=== PATIENT | male | born 1960 | race Caucasian/White ===

== ENCOUNTER 2022-09-19 08:52 | Outpatient (REF) | payer BC, SELFPAY ==
[2022-09-19 15:14] LABS: ALT 24 U/L (16-63); AST 24 U/L (15-37); Albumin 4.1 g/dL (3.4-5.0); Alkaline Phosphatase 96 U/L (46-116); Anion Gap 6.8 mmol/L (3-11); BUN 11 mg/dL (7-18); Bilirubin, Total 0.6 mg/dL (0.2-1.0); CO2 29.2 mmol/L (21.0-32.0); CREATININE 0.8 mg/dL (0.70-1.30); Calcium 9.2 mg/dL (8.5-10.1); Calculated LDL 123 mg/dL (<100); Chloride 105 mmol/L (98-107); Cholesterol 205 mg/dL (<200); Estimated GFR 100.06 (mL/min/1.73m2); Glucose 114 mg/dL (74-106); HDL Cholesterol 41 mg/dL (40-60); Potassium 4.4 mmol/L (3.5-5.1); Sodium 141 mmol/L (136-145); TSH (W/Ref FT4) 2.57 uIU/mL (0.36-3.74); Total Protein 6.9 g/dL (6.4-8.2); Triglyceride 205 mg/dL (<150)
[2022-09-19 15:34] LABS: Hemoglobin A1C 5.5 % (<5.7)
[2022-09-20 14:07] LABS: HIV-1/2 Ag & Ab Screen Negative (Negative)
[2022-09-23 15:52] LABS: Hepatitis C Ab w Rflx HCV PCR Negative (Negative)
== END 2022-09-19 08:53 | disposition home or self-care (01) ==
LOC: NCHCN 08:52
PROVIDERS: PCP Nurse Practitioner Family; Visit Provider Nurse Practitioner Family
DX: E78.5 Hyperlipidemia, unspecified (principal); E66.9 Obesity, unspecified; R53.83 Other fatigue; Z13.1 Encounter for screening for diabetes mellitus; Z11.4 Encounter for screening for human immunodeficiency virus [HIV]; Z11.59 Encounter for screening for other viral diseases; Z00.00 Encounter for general adult medical examination without abnormal findings
CPT/HCPCS: 80053; 80061; 86803; 87389; 83036; 84443

== ENCOUNTER 2023-03-31 07:34 | Day surgery (SDC) | payer BC, SELFPAY ==
--- NOTE | 2023-03-30 19:55 | W.PM.DSUDISC ---
Date of service: 03/31/23 Time of Service: 09:30 Discharge Plan Disposition Patient Disposition: Home Condition: Good Discharge Details Reason For Visit: Screening colonoscopy Attending Provider: Tucker Zimmerman Primary Care Provider: Xiomara Felipe Home Meds and New Rx's Prescriptions: Continued duloxetine 60 mg capsule,delayed release(DR/EC) 60 mg PO DAILY rosuvastatin 10 mg tablet 10 mg PO DAILY fluticasone propionate [Flonase Allergy Relief] 50 mcg/actuation spray,suspension 1 spray intranasal DAILY Rx Instructions: administer into each nostril loratadine [Claritin] 10 mg tablet 10 mg PO DAILY ibuprofen 200 mg tablet 400 mg PO Q6H PRN Discontinued polyethylene glycol 3350 17 gram/dose powder 238 g PO ONCE Qty: 238 0RF Rx Instructions: take per colonoscopy instructions bisacodyl [Dulcolax (bisacodyl)] 5 mg tablet,delayed release (DR/EC) 5 mg PO ONCE Qty: 4 0RF Rx Instructions: take per colonoscopy instructions Discharge Instructions Instructions: Diverticulosis (GEN), Diverticulosis Diet (GEN) Additional Instructions: Britton, we were able to complete your colonoscopy today without any difficulty. You have a modest amount of sigmoid diverticulosis. These are small weak spots in the colon wall. I have attached some information here regarding general management of diverticular disease. Otherwise, I did not see any signs of polyps or tumors. 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 This is important, because it informs us regarding the interval for your screening colonoscopies. Most people recommend follow-ups at 5 to 7 years with a previous tubulovillous adenoma. You have now had 2 negative colonoscopies. In that regards, I think it would be reasonable to consider another colonoscopy in 7 to 10 years. 1. If tolerated, consume a soft, low fiber diet for 1-2 days. 2. Do not drive, drink alcohol, operate machinery, make critical decisions, or do activities that require coordination or balance for 24 hours. 3. Because air was put into your colon during the procedure, expelling air from your rectum (passing gas or farting) is normal. 4. You may not have a bowel movement for 1-3 days because of the colonoscopy prep. This is normal. 5. Go directly to the emergency room if you notice any of the following: Develop chills (warm to touch), or if you have a thermometer and your temperature is above 101 Difficulty breathing or difficultly swallowing Persistent vomiting Severe abdominal pain, other than gas cramps Severe chest pain Black, tarry stools Any bleeding ? exceeding one tablespoon 6. Call your physician if the site where your intravenous was started becomes red, swollen, painful, and warm to touch. 7. Your physician has reviewed your pre-procedure medications. Please continue to take those medications as previously ordered. You will be given specific information/education regarding any changes to your medications before leaving. Activity:: Activity as Tolerated Diet:: As Tolerated Discharge Orders Discharge Orders: Discharge Order (Routine); Ordered 03/30/23 Ordered By: Tucker Zimmerman DS: Diagnosis Discharge Diagnosis (1) Screen for colon cancer: Status: Acute Asessment and Plan: Negative screening colonoscopy
--- NOTE | 2023-03-30 19:56 | W.COLOREPORT ---
Date of service: 03/31/23 Time of Service: 09:32 Colonoscopy Report Date of procedure: 03/31/23 Pre-op diagnosis general: Screening colonoscopy Post-op diagnosis procedure note: other (Diverticulosis) Procedure: Colonoscopy Surgeon: Tucker Zimmerman Anesthesia Type: General:No Airway Estimated blood loss (mL): 0 Pathology: none sent Complications: None Disposition: same day Indications: Britton is 62 years old. He has had adenomatous polyps removed during previous colonoscopy. He needs another colonoscopy Prep: Miralax/Dulcolax Procedure Start Time: 08:57 Procedure End Time: 09:17 Retraction Time: 14 Findings: Sigmoid diverticulosis Procedure Description: After the induction of monitored anesthetic care, and with the patient in left lateral decubitus position, I began by performing an external anorectal exam.? Perineum and skin were normal, as was the anal verge.? There was no evidence of external hemorrhoids.? Next, I performed a digital rectal exam.? I did not appreciate any abnormal findings.? Next, I advanced a colonoscope into the rectal vault.? I performed retroflexion.? This looked normal to me.? Using insufflation, I then advanced the colonoscope beyond the rectal folds and into the sigmoid colon before advancing towards the cecum.? The quality of the prep was adequate.? There was moderate sigmoid diverticulosis. The scope was noted to be in the cecum by identification of the ileocecal valve and appendiceal orifice.? I then began withdrawing the colonoscope using repeated irrigation as necessary for full evaluation of the colonic mucosa. ?Once the scope was withdrawn to the level of the rectum, great care was taken to examine portions of the rectal folds.? Finally, the scope was withdrawn and the patient was brought to the same-day surgery recovery unit as the anesthetic wore off. ?The findings and instructions were shared with the patient prior to discharge.
[2023-03-31 08:03] VITALS: BP 141/91; PULSE 66; RESP 16; TEMP 36.3; O2SAT 96
[2023-03-31] MEDS: Lactated Ringers 1,000 ML 80 ML IV (08:31)
--- NOTE | 2023-03-31 08:40 | W.ANESPRE ---
General Info Date of Service Date Performed: 03/31/23 Height: 6 ft 1 in Weight: 112.8 kg Body Mass Index (BMI): 32.8 Surgical Procedure: Operation Date: 03/31/23 09:05 Proposed Procedure Side Surgeon kendal Zimmerman MD Meds Allergies and Home Medications Allergies Allergy/AdvReac Type Severity Reaction Status Date / Time No Known Drug Allergies Allergy Unknown Verified 03/31/23 07:58 Home Medication Medication Instructions Recorded duloxetine 60 mg capsule,delayed 60 mg PO DAILY 03/17/23 release fluticasone propionate 50 1 spray intranasal DAILY 03/17/23 mcg/actuation nasal spray,suspension (Flonase Allergy Relief) ibuprofen 200 mg tablet 400 mg PO Q6H PRN 03/17/23 loratadine 10 mg tablet (Claritin) 10 mg PO DAILY 03/17/23 rosuvastatin 10 mg tablet 10 mg PO DAILY 03/17/23 Current Visit Medications: Current Medications Generic Name Dose Route Start Last Admin Trade Name Freq PRN Reason Stop Dose Admin Hyoscyamine Sulfate 0.125 mg 03/30/23 19:58 Hyoscyamine 0.125 Mg Sl/Oral/Chew SL 04/29/23 19:57 DIRECTED PRN Ringer's Solution 1,000 mls @ 80 mls/hr 03/31/23 06:00 03/31/23 08:31 IV 04/27/23 23:59 80 mls/hr INFUSION ANKUR Administration IV Miscellaneous Supplies 1 each 03/31/23 06:00 Iv Access IV 04/27/23 23:59 DIRECTED ANKUR Ondansetron HCl 4 mg 03/30/23 19:58 Ondansetron 4 Mg/2 Ml Vial IVP 04/29/23 19:57 Q4H PRN PRN Nausea / Vomiting Sodium Chloride 0 ml 03/31/23 06:00 Normal Saline Flush 10 Ml Syr IV 04/27/23 23:59 PRN PRN Sodium Chloride 0 ml 03/31/23 06:00 Normal Saline 10 Ml Vial IJ 04/27/23 23:59 DIRECTED PRN Sterile Water 0 ml 03/31/23 06:00 Water,Injection,Sterile 10 Ml Vial IJ 04/27/23 23:59 DIRECTED PRN PFSH Active Problems Active Problems: Problem Status Onset Code Degenerative disc disease, lumbar M51.36 Spinal stenosis M48.00 Obesity E66.9 Anxiety disorder F41.9 Former smoker Z87.891 Screen for colon cancer Z12.11 Medical History Medical History Allergic rhinitis History of colon polyps villous adenoma Hyperlipidemia Impaired fasting glucose Major depression, recurrent FABY (obstructive sleep apnea) Peripheral vascular disease Vitamin B deficiency Vitamin D deficiency Surgical History Surgical History (Updated 03/31/23 @ 08:01 by Tamra Haque) History of knee replacement right Hx of colonoscopy Tobacco Smoking/Tobacco Use Status: Former Tobacco Use Alcohol Alcohol Intake: never Substance Use Substance use: Never Substance use type: does not use Vital Signs and Lab Results Vital Signs Most Recent Vital Signs in EMR: Most Recent Vital Signs Temp Pulse Resp BP Pulse Ox 36.3 C L 66 16 141/91 H 96 03/31/23 08:03 03/31/23 08:03 03/31/23 08:03 03/31/23 08:03 03/31/23 08:03 Lab Results Blood Type / Crossmatch: No Data to Display Complete Blood Count: No Data to Display Complete Metabolic Panel: No Data to Display Liver Function Panel: No Data to Display Coagulation Panel: No Data to Display Cardiac Panel: No Data to Display Arterial Blood Gas: No Data to Display Venous Blood Gas: No Data to Display Pancreas Panel: No Data to Display Thyroid Panel: No Data to Display Infectious Disease: No Data to Display Blood Cultures: No Data to Display Toxicology Panel: No Data to Display Anesthesia Assessment and Plan Anesthesia History Personal History: No History of Anesthesia Complications Family History: No Family History of Anesthesia Complications Exercise Tolerance Exercise Tolerance: Metabolic Equivalents>4 Pertinent Negatives Pertinent Negatives: No Symptoms of GERD, No Major Cardiovascular Symptoms or Complaints, No Major Pulmonary Symptoms or Complaints and No History of CVA/TIA Cardiac & Pulmonary Exam Cardiac Exam: Normal S1/S2 Heart Sounds Pulmonary Exam: Clear Bilateral Breath Sounds Implantable Cardiac Device Does patient have a Pacemaker or an ICD?: No Airway Exam Known Difficult Airway: No Mallampati Class: 2 Mouth Opening: Normal (> 3cm) Thyromental Distance: Greater than 3 cm Neck Range of Motion: Full ROM Neck Circumference: Normal Teeth Condition: Normal Dentition ASA Classification ASA Score: ASA 2 Emergency Case?: No NPO Status NPO Status: NPO Clears >2 hours, Solids >8 hours Anesthesia Plan Resuscitation Status: Full Code Anesthesia Technique: General Anesthesia Airway Planned: Natural Airway Monitors Used: Standard Monitors
[2023-03-31 09:21] VITALS: BP 126/82; PULSE 68; RESP 17; TEMP 36.6; O2SAT 96
[2023-03-31 09:24] VITALS: BMI 32.8
[2023-03-31 09:50] VITALS: BP 130/86; PULSE 62; RESP 17; TEMP 36.5; O2SAT 96
--- NOTE | 2023-03-31 10:09 | W.ANESPOSTOP ---
Postoperative Evaluation Date, Time and Location Date Performed: 03/31/23 Time Performed: 09:21 Patient Location: Day Surgery Unit Vital Signs Most Recent Imported Vital Signs: Most Recent Vital Signs Temp Pulse Resp BP Pulse Ox 36.6 C 68 17 126/82 96 03/31/23 09:21 03/31/23 09:21 03/31/23 09:21 03/31/23 09:21 03/31/23 09:21 Pain Score Most Recent Pain Score: Most Recent Pain Score Pain Level 0 03/31/23 09:21 Assessment Mental Status: Awake (Alert & Oriented to Patient Baseline) Airway and Respiratory Function: Patent airway with normal (patient baseline) respiratory exam Cardiovascular Function: Hemodynamically Stable Hydration Status: Adequately Hydrated Nausea & Vomiting: No Nausea or Vomiting Pain: Pt. Denies Any Pain Peripheral Nerve Block: Patient did not receive a nerve block
== END 2023-03-31 10:05 | disposition home or self-care (01) ==
PROVIDERS: PCP Family Medicine; Visit Provider Surgery
PROC: 0DJD8ZZ Inspection of Lower Intestinal Tract, Via Natural or Artificial Opening Endoscopic (ICD-10-PCS; CPT 45378; principal; 2023-03-31 09:00)
DX: Z12.11 Encounter for screening for malignant neoplasm of colon (principal); K57.30 Diverticulosis of large intestine without perforation or abscess without bleeding; Z86.010 Personal history of colon polyps
CPT/HCPCS: 45378

== ENCOUNTER 2023-04-01 21:29 | Outpatient (REF) | payer BC, SELFPAY ==
[2023-04-01 21:06] LABS: Abs Immature Grans 0.04 10^3/uL (0.0-0.06); Absolute Eosinophil Count 0.39 10^3/uL (0.0-0.7); Absolute Lymphocyte Count 2.36 10^3/uL (1.2-3.4); Absolute Monocyte Count 0.67 10^3/uL (0.1-0.8); Absolute Neutrophil Count 4.48 10^3/uL (1.2-6.7); Basophils % 1.2; Eosinophils % 4.9; Immature Grans % 0.5; Lymphocytes % 29.4; MCHC 35.7 % (32.0-36.0); MCV 90 fL (80-95); MPV 9.8 fL (8.0-11.0); Monocytes % 8.3; Neutrophils % 55.7; Platelet Count 263 10^3/uL (130-400); RBC 4.69 10^6/uL (4.36-5.78); RDW 11.6 % (11.8-14.1); RDW-SD 37.6 fL; WBC 8.04 10^3/uL (4.4-10.8)
[2023-04-01 21:18] LABS: ALT 31 U/L (16-63); AST 21 U/L (15-37); Albumin 4.1 g/dL (3.4-5.0); Alkaline Phosphatase 114 U/L (46-116); Anion Gap 8.4 mmol/L (3-11); BUN 8 mg/dL (7-18); Bilirubin, Total 0.3 mg/dL (0.2-1.0); CO2 28.6 mmol/L (21.0-32.0); Calcium 8.8 mg/dL (8.5-10.1); Chloride 102 mmol/L (98-107); Estimated GFR 84.57 (mL/min/1.73m2); Glucose 101 mg/dL (74-106); Potassium 3.7 mmol/L (3.5-5.1); Sodium 139 mmol/L (136-145); Total Protein 7.1 g/dL (6.4-8.2)
== END 2023-04-01 21:30 | disposition home or self-care (01) ==
LOC: NCHCN 21:29
PROVIDERS: PCP Family Medicine; Visit Provider Family Medicine
DX: R61 Generalized hyperhidrosis (principal)
CPT/HCPCS: 80053; 85025

== ENCOUNTER 2023-10-30 13:55 | Outpatient (REF) | payer BC, SELFPAY ==
[2023-10-30 14:31] LABS: Anion Gap 8.7 mmol/L (3-11); BUN 17 mg/dL (7-18); CO2 28.3 mmol/L (21.0-32.0); CREATININE 0.9 mg/dL (0.70-1.30); Calcium 8.9 mg/dL (8.5-10.1); Chloride 107 mmol/L (98-107); Estimated GFR 95.97 (mL/min/1.73m2); Glucose 96 mg/dL (74-106); Potassium 4.3 mmol/L (3.5-5.1); Sodium 144 mmol/L (136-145)
[2023-10-30 15:09] LABS: Hemoglobin A1C 6.1 % (<5.7)
== END 2023-10-30 13:56 | disposition home or self-care (01) ==
LOC: NCHCN 13:55
PROVIDERS: PCP Family Medicine; Visit Provider Family Medicine
DX: E11.9 Type 2 diabetes mellitus without complications (principal)
CPT/HCPCS: 80048; 83036

== ENCOUNTER 2024-09-06 14:43 | Outpatient (REF) | payer BC, SELFPAY ==
[2024-09-06 16:40] LABS: ALT 28 U/L (16-63); AST 23 U/L (15-37); Albumin 4.8 g/dL (3.4-5.0); Alkaline Phosphatase 122 U/L (46-116); Anion Gap 7.5 mmol/L (3-11); BUN 13 mg/dL (7-18); Bilirubin, Total 0.82 mg/dL (0.2-1.0); CO2 30.5 mmol/L (21.0-32.0); Calcium 9.5 mg/dL (8.5-10.1); Calculated LDL 73 mg/dL (<100); Chloride 105 mmol/L (98-107); Cholesterol 154 mg/dL (<200); Estimated GFR 84.05 (mL/min/1.73m2); Glucose 139 mg/dL (74-106); HDL Cholesterol 48 mg/dL (40-60); Potassium 3.9 mmol/L (3.5-5.1); Sodium 143 mmol/L (136-145); Triglyceride 165 mg/dL (<150)
== END 2024-09-06 14:44 | disposition home or self-care (01) ==
LOC: NCHCN 14:43
PROVIDERS: PCP Family Medicine; Visit Provider Family Medicine
DX: E78.5 Hyperlipidemia, unspecified (principal); R73.03 Prediabetes
CPT/HCPCS: 80053; 80061; 83036